=== PATIENT | male | born 1960 | race American Indian/Alaskan Native ===

== ENCOUNTER 2017-11-22 13:30 | Outpatient (CLI) | payer MEDICARE ==
--- NOTE | 2017-11-22 21:20 | XRay Report ---
FINAL REPORT PROCEDURE: Right and left knees. TECHNIQUE: AP weight-bearing views of each knee. HISTORY: Knee pain. COMPARISON: No prior studies are available for comparison. FINDINGS: Right knee: The bones appear intact without fracture. There is mild narrowing of the medial compartment of the knee joint. There is osteophyte formation arising from the distal femur and proximal tibia. The soft tissues are unremarkable. Left knee: The bones appear intact without fracture. There is mild narrowing of the medial compartment of the knee joint. There is no significant osteophyte formation. The soft tissues are unremarkable. IMPRESSION: Moderate osteoarthritis in the right knee. Mild osteoarthritis in the left knee.
--- NOTE | 2017-11-22 21:22 | XRay Report ---
FINAL REPORT PROCEDURE: Pelvis. TECHNIQUE: Three views. HISTORY: Pelvic and perineal pain. COMPARISON: No prior studies are available for comparison. FINDINGS: The pelvis appears intact without fracture. 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 The symphysis pubis appears normal. There is mild narrowing of the right hip joint. There is some remodeling of the femoral head. There are cystic changes in the acetabulum which are likely degenerative in etiology. There is severe narrowing of the left hip joint. There are cystic changes on both sides of the joint. The soft tissues are unremarkable. IMPRESSION: Severe left hip osteoarthritis. Moderate right hip osteoarthritis. Fusion of the sacroiliac joints.
== END 2017-11-22 13:31 | disposition home or self-care (01) ==
LOC: XRAY 13:30
PROVIDERS: ATTEND Orthopaedic Surgery
DX: M16.0 Bilateral primary osteoarthritis of hip (principal); M17.0 Bilateral primary osteoarthritis of knee; M43.28 Fusion of spine, sacral and sacrococcygeal region; R10.2 Pelvic and perineal pain
CPT/HCPCS: 72190; 73565

== ENCOUNTER 2018-03-13 11:01 | Outpatient (CLI) | payer MEDICARE ==
--- NOTE | 2018-03-13 12:17 | XRay Report ---
LEFT HIP, 2 views: History: Left hip pain. Severe, end-stage osteoarthritis of the left hip is unchanged since 11/22/17. There is complete loss of joint space, extensive articular surface sclerosis, osteophytosis and numerous subchondral cysts. No fracture or bone lesion is identified. IMPRESSION: Severe osteoarthritis of the left hip.
== END 2018-03-13 11:02 | disposition home or self-care (01) ==
LOC: XRAY 11:01
PROVIDERS: ATTEND Orthopaedic Surgery
DX: M16.12 Unilateral primary osteoarthritis, left hip (principal)

== ENCOUNTER 2018-05-06 13:02 | Outpatient (CLI) | payer MEDICARE ==
--- NOTE | 2018-05-06 17:58 | XRay Report ---
FINAL REPORT EXAM: XR HIP 2-3V LT HISTORY: PAIN IN LEFT HIP TECHNIQUE: Left hip and AP pelvis three views PRIORS: None. FINDINGS: There is left total hip replacement. Prostatic components appear intact and demonstrate expected positioning. Some hypertrophic acetabular bony changes are noted bilaterally right hip does demonstrate some joint space narrowing. No acute fracture is identified. No abnormal bony lucencies are observed. IMPRESSION: Left total hip replacement. No acute abnormality identified. Moderate DJD noted at the right hip
== END 2018-05-06 13:03 | disposition home or self-care (01) ==
LOC: XRAY 13:02
PROVIDERS: ATTEND Orthopaedic Surgery
DX: M25.552 Pain in left hip (principal); M16.11 Unilateral primary osteoarthritis, right hip; I11.0 Hypertensive heart disease with heart failure; I50.9 Heart failure, unspecified; G47.30 Sleep apnea, unspecified; Z90.49 Acquired absence of other specified parts of digestive tract; Z96.642 Presence of left artificial hip joint